=== PATIENT | female | born 1985 | race American Indian/Alaskan Native ===

== ENCOUNTER 2017-10-23 18:37 | Emergency (ER) | payer SELFPAY ==
[2017-10-23 19:47] LABS: Hematocrit 42.7 % (30.3-42.9); Mean Corpuscular HGB Conc 33 % (30-34); Mean Corpuscular Hemoglobin 30 pg (28-32); Mean Corpuscular Volume 90 fl (79-97); Platelet Count 368 K/mm3 (140-440); Red Blood Count 4.75 M/mm3 (3.65-5.03); Red Cell Distribution Width 14.1 % (13.2-15.2)
[2017-10-23 20:00] LABS: BUN/Creatinine Ratio 11; Blood Urea Nitrogen 8 mg/dL (7-17); Calcium 9.5 mg/dL (8.4-10.2); Hemolysis Index 3
[2017-10-23] MEDS ORDERED: KEPPRA PO ONE (20:51)
[2017-10-23 20:57] VITALS: BP 129/78
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
== END 2017-10-23 21:49 | disposition home or self-care (01) ==
LOC: ED 18:37
DX: E86.0 Dehydration (principal); R56.9 Unspecified convulsions; Z72.0 Tobacco use
CPT/HCPCS: 36415; 80048; 82962; 84703; 85027; 99285

== ENCOUNTER 2021-02-08 19:52 | Emergency (ER) | payer MEDICAID ==
[2021-02-08 19:57] VITALS: BP 128/79
[2021-02-08] MEDS ORDERED: ASPIRIN 81 MG TAB CHEW PO ONE (20:36)
[2021-02-08] MEDS ORDERED: ACETAMINOPHEN 325 MG TAB PO ONE (20:36)
[2021-02-08] MEDS ORDERED: FAMOTIDINE 20 MG TAB PO ONE (20:37)
--- NOTE | 2021-02-08 21:14 | XRay Report ---
CHEST 2 VIEWS INDICATION / CLINICAL INFORMATION: Chest pain. COMPARISON: None available. FINDINGS: SUPPORT DEVICES: None. HEART / MEDIASTINUM: No significant abnormality. LUNGS / PLEURA: No significant pulmonary abnormality. No significant pleural effusion. No pneumothora x. ADDITIONAL FINDINGS: No significant additional findings. IMPRESSION: 1. No acute abnormality of the chest. Signer Name: Brigido Bazan MD Signed: 02/08/2021 9:10 PM Workstation Name: [id number]
[2021-02-08 21:36] LABS: Basophils # (Auto) 0.1 K/mm3 (0.0-0.1); Basophils % (Auto) 0.4 % (0.0-1.8); Eosinophils % (Auto) 0.2 % (0.0-4.3); Hematocrit 39.8 % (30.3-42.9); Hemoglobin 12.4 gm/dl (10.1-14.3); Lymphocytes # (Auto) 2.8 K/mm3 (1.2-5.4); Lymphocytes % (Auto) 22.8 % (13.4-35.0); Mean Corpuscular HGB Conc 31 % (30-34); Mean Corpuscular Volume 91 fl (79-97); Monocytes # (Auto) 0.7 K/mm3 (0.0-0.8); Monocytes % (Auto) 5.6 % (0.0-7.3); Platelet Count 432 K/mm3 (140-440); Red Cell Distribution Width 13.5 % (13.2-15.2)
[2021-02-08 21:56] LABS: Alanine Aminotransferase 35 units/L (7-56); Albumin 4.5 g/dL (3.9-5); Blood Urea Nitrogen 14 mg/dL (7-17); Calcium 9.5 mg/dL (8.4-10.2); Hemolysis Index 7
[2021-02-08 22:01] LABS: BUN/Creatinine Ratio 20
--- NOTE | 2021-02-08 23:00 | Emergency Department Report ---
ED Chest Pain HPI - General Chief Complaint: Chest Pain Stated Complaint: Chest Pain Source: patient Mode of arrival: Ambulatory Limitations: No Limitations - History of Present Illness Initial Comments: Patient is a 35-year-old -[place] female with a history of heavy tobacco abuse who presents to the ED with complaint of persistent diffuse chest wall pain radiating the right side with persistent dry cough and pleuritic chest pain for the last 6 months, worse in the last 2 days. Patient states that the symptoms have been persistent and worse with movement or cough. Patient denies dizziness, syncope, nausea, vomiting, dysuria, urinary frequency and urgency, shortness of breath, sore throat, nasal and sinus congestion, neck pain, diaphoresis, abdominal pain or back pain, traumatic injury or heavy lifting. MD Complaint: chest pain (Right-sided chest pain), other (Persistent cough) -: Gradual, month(s) (6) Onset: during exertion, other (With cough) Pain Location: right chest Pain Radiation: none Severity: moderate Severity scale (0 -10): 6 Quality: aching, sharp Consistency: intermittent Improves With: rest Worsens With: inspiration, palpation, movement, other (Cough) re: denies: nausea, vomting, diaphoresis, dyspnea, sense of impending doom Other Symptoms: cough. denies: fever, syncope, rash, acid taste in mouth, leg swelling, palpitations, burping Treatments Prior to Arrival: none - Related Data On Oral Contraceptives: No Previous Rx's Medication Instructions Recorded Last Taken Type Ibuprofen [Motrin] 400 mg PO Q8H PRN #20 tablet 02/08/21 Unknown Rx Ondansetron [Zofran ODT TAB] 8 mg PO Q8HR #20 tab.rapdis 02/09/21 Unknown Rx RX: Nitrofurantoin [place]/M-Cryst 100 mg PO Q12HR #20 capsule 02/09/21 Unknown Rx [Macrobid CAP] Allergies Allergy/AdvReac Type Severity Reaction Status Date / Time Sulfa (Sulfonamide Allergy Unknown Verified 02/09/21 04:12 Antibiotics) Heart Score - HEART Score History: Slightly suspicious EKG: Normal Age: < 45 Risk factors: 1-2 risk factors Troponin: < normal limit HEART Score: 1 - EKG Read Time Time EKG Completed: 02:09 EKG Read Time: 02:10 - Critical Actions Critical Actions: 0-3 pts:0.9-1.7%risk of adverse cardiac event.Candidate for princess araiza ED Review of Systems ROS: Stated complaint: Chest Pain Other details as noted in HPI Constitutional: denies: chills, fever Eyes: denies: eye pain, eye discharge, vision change ENT: denies: ear pain, throat pain Respiratory: cough. denies: shortness of breath, wheezing Cardiovascular: chest pain (Diffuse pruritic chest pain). denies: palpitations Endocrine: no symptoms reported Gastrointestinal: denies: abdominal pain, nausea, diarrhea Genitourinary: denies: urgency, dysuria, discharge Musculoskeletal: denies: back pain, joint swelling, arthralgia Skin: denies: rash, lesions Neurological: denies: headache, weakness, paresthesias Psychiatric: anxiety. denies: depression Hematological/Lymphatic: denies: easy bleeding, easy bruising ED Past Medical Hx - Past Medical History Previous Medical History?: No - Surgical History Past Surgical History?: No - Social History Smoking Status: Current Some Day Smoker Substance Use Type: None - Medications Home Medications: Home Medications Medication Instructions Recorded Confirmed Last Taken Type Ibuprofen [Motrin] 400 mg PO Q8H PRN #20 tablet 02/08/21 Unknown Rx Ondansetron [Zofran ODT TAB] 8 mg PO Q8HR #20 tab.rapdis 02/09/21 Unknown Rx RX: Nitrofurantoin [place]/M-Cryst 100 mg PO Q12HR #20 capsule 02/09/21 Unknown Rx [Macrobid CAP] ED Physical Exam - General Limitations: No Limitations General appearance: alert, in no apparent distress - Head Head exam: Present: atraumatic, normocephalic, normal inspection - Eye Eye exam: Present: normal appearance, PERRL, EOMI Pupils: Present: normal accommodation - ENT ENT exam: Present: normal exam, normal orophraynx, mucous membranes moist, TM's normal bilaterally, normal external ear exam - Neck Neck exam: Present: normal inspection, full ROM - Respiratory Respiratory exam: Present: normal lung sounds bilaterally, chest wall tenderness (Palpable reproducible diffuse chest wall tenderness worse on the right chest wall). Absent: respiratory distress, wheezes, rales, rhonchi, accessory muscle use, decreased breath sounds, prolonged expiratory - Cardiovascular Cardiovascular Exam: Present: regular rate, normal rhythm, normal heart sounds. Absent: systolic murmur, diastolic murmur, rubs, gallop - GI/Abdominal GI/Abdominal exam: Present: soft, normal bowel sounds. Absent: tenderness, guar ding, rebound, hyperactive bowel sounds, hypoactive bowel sounds, organomegaly - Extremities Exam Extremities exam: Present: normal inspection, full ROM, normal capillary refill - Back Exam Back exam: Present: normal inspection, full ROM. Absent: tenderness, CVA tenderness (R), CVA tenderness (L), muscle spasm, paraspinal tenderness, vertebral tenderness - Neurological Exam Neurological exam: Present: alert, oriented X3, CN II-XII intact, normal gait, reflexes normal - Psychiatric Psychiatric exam: Present: normal affect, normal mood, anxious - Skin Skin exam: Present: warm, dry, intact, normal color. Absent: rash ED Course Vital Signs 02/08/21 19:54 Temperature 98.0 F Pulse Rate 87 Respiratory 17 Rate Blood Pressure 128/79 [Right] O2 Sat by Pulse 100 Oximetry ANGEL score - Angel Score Age > 65: (0) No Aspirin use within the Past 7 Days: (0) No 3 or more CAD Risk Factors: (0) No 2 or more Angina events in past 24 hrs: (0) No Known CAD with more than 50% Stenosis: (0) No Elevated Cardiac Markers: (0) No ST Deviation Greater than 0.5mm: (0) No ANGEL Score: 0 ED Medical Decision Making - Lab Data Result diagrams: 02/08/21 21:18 02/08/21 21:18 - EKG Data EKG shows normal: sinus rhythm Rate: normal - EKG Data Interpretation: normal EKG 02/09/21 06:17 EKG shows normal sinus rhythm with a ventricular rate of [address] or T wave normalities. - Radiology Data Radiology results: report reviewed, image reviewed [facility] [address] [place] [address] XRay Report Signed Patient: JOCELYNE PETTY MR#: [id number] : 1985 Acct:[id number] Age/Sex: 35 / F ADM Date: 02/08/21 Loc: ED Attending Dr: Ordering Physician: LUIS PAULSON Date of Service: 02/08/21 Procedure(s): XR chest routine 2V Accession Number(s): [id number] cc: LUIS PAULSON Fluoro Time In Minutes: CHEST 2 VIEWS INDICATION / CLINICAL INFORMATION: Chest pain. COMPARISON: None available. FINDINGS: SUPPORT DEVICES: None. HEART / MEDIASTINUM: No significant abnormality. LUNGS / PLEURA: No significant pulmonary abnormality. No significant pleural effusion. No pneumothorax. ADDITIONAL FINDINGS: No significant additional findings. IMPRESSION: 1. No acute abnormality of the chest. Signer Name: Brigido Bazan MD Signed: 02/08/2021 9:10 PM Workstation Name: [id number] Transcribed By: JEANETTE Dictated By: Brigido Bazan MD Electronically Authenticated By: Brigido Bazan MD Signed Date/Time: 02/08/212109 DD/ 09 TD/TT: Print - Medical Decision Making This is a 35-year-old -[place] female with a history of heavy tobacco abuse who presents to the ED with complaint of persistent diffuse chest wall pain radiating the right side with persistent dry cough and pleuritic chest pain for the last 6 months, worse in the last 2 days. Patient states that the symptoms have been persistent and worse with movement or cough. In the ED, patient is alert and oriented x3 and is not in any distress. EKG shows normal sinus rhythm with a ventricular rate of [address] or T wave normalities. Chest x-ray showed no acute cardiopulmonary abnormalities or pneumonitis. All lab test results were reviewed and are all nonactionable. Patient was treated for pain in the ED with pain on reevaluation, patient's pain is well controlled medication. Patient declined urinalysis during this visit. Patient's heart score is 1 and patient is PERC negative per Wells criteria. Patient was discha rged home on pain medications and advised to follow-up with her primary care physician in 7 to 10 days for reevaluation. Patient is advised return to the ED immediately if symptoms get worse. - Differential Diagnosis ACS; pneumonia; bronchitis; costochondritis; anxiety; Critical care attestation.: If time is entered above; I have spent that time in minutes in the direct care of this critically ill patient, excluding procedure time. ED Disposition Clinical Impression: Acute nonspecific chest pain with low risk of coronary artery disease, Acute costochondritis Disposition: HOME / SELF CARE / HOMELESS Is pt being admited?: No Does the pt Need Aspirin: No Condition: Stable Instructions: Costochondritis, Luqz-ok-Wogs, Nonspecific Chest Pain, Adult, Kpmj-as-Fops, Chest Pain (ED) Additional Instructions: Your lab test results were unremarkable, and chest x-ray showed no acute cardiopulmonary abnormalities or pneumonitis. Your symptoms are likely due to muscle strain of the chest wall muscles that cause inflammation of your chest wall that results in pain. Therefore take pain medication as needed with food, drink plenty of fluids and follow-up with your primary care physician in 5 to 7 days for reevaluation. Return to the ED immediately if symptoms get worse. Prescriptions: Ibuprofen [Motrin] 400 mg PO Q8H PRN #20 tablet PRN Reason: Pain , Severe (7-10) Referrals: [facility] [Provider Group] - 3-5 Days Time of Disposition: 22:59 Print Language: DANISH
--- NOTE | 2021-02-09 08:58 | Electrocardiograph Report ---
[facility] Test Date: 2021-02-08 Test Time: 20:04:45 Pat Name: JOCELYNE PETTY Department: Room: Gender: F Cell Reliner: AMPARO : 1985 Requested By: VINAY SIERRA Order Number: [id number] Reading MD: Prince Momin Measurements Intervals [place] Rate: 77 P: 63 HI: 133 QRS: 70 QRSD: 84 T: 54 QT: 403 QTc: 457 Interpretive Statements Sinus rhythm No previous ECG available for comparison Electronically Signed On 02-09-2021 8:57:47 EST by Prince Momin
== END 2021-02-09 01:02 | disposition home or self-care (01) ==
LOC: ED 19:52
DX: M94.0 Chondrocostal junction syndrome [Tietze] (principal); R07.89 Other chest pain; F17.200 Nicotine dependence, unspecified, uncomplicated
CPT/HCPCS: 36415; 71046; 80053; 83690; 84484; 85025; 93005

== ENCOUNTER 2021-02-09 04:03 | Emergency (ER) | payer MEDICAID ==
[2021-02-09 04:12] VITALS: BP 109/72
--- NOTE | 2021-02-09 04:47 | Emergency Department Report ---
HPI - General Chief Complaint: Abdominal Pain - HPI HPI: MSE 1 Patient is a 35-year-old female present with a chief complaint of nausea and lower abdominal discomfort. The patient was seen in this ED several hours ago for right-sided chest pain. The patient returns and states she never received any medication for nausea. Patient states she also has occasional pain in the left lower quadrant for the past 2 to 3 weeks. Patient denies dysuria or hematuria. ED Past Medical Hx - Past Medical History Previous Medical History?: No - Surgical History Past Surgical History?: No - Family History Family history: no significant - Social History Smoking Status: Current Some Day Smoker Substance Use Type: None - Medications Home Medications: Home Medications Medication Instructions Recorded Confirmed Last Taken Type Ibuprofen [Motrin] 400 mg PO Q8H PRN #20 tablet 02/08/21 Unknown Rx Nitrofurantoin [place]/M-Cryst 100 mg PO Q12HR #20 capsule 02/09/21 Unknown Rx [Macrobid CAP] Ondansetron [Zofran ODT TAB] 8 mg PO Q8HR #20 tab.rapdis 02/09/21 Unknown Rx ED Review of Systems ROS: Stated complaint: ABD PAIN Other details as noted in HPI Constitutional: denies: fever Eyes: denies: eye pain ENT: denies: throat pain Respiratory: no symptoms reported Cardiovascular: as per HPI Endocrine: no symptoms reported Gastrointestinal: abdominal pain, nausea, vomiting Genitourinary: denies: dysuria, hematuria Musculoskeletal: back pain Neurological: denies: headache Physical Exam - Physical Exam Vital Signs: Vital Signs 02/09/21 04:05 Temperature 98.0 F Pulse Rate 81 Respiratory 16 Rate Blood Pressure 109/72 [Right] O2 Sat by Pulse 100 Oximetry Physical Exam: GENERAL: The patient is well-developed well-nourished female sitting in chair not appearing to be in acute distress. [] HEENT: Normocephalic. Atraumatic. Extraocular motions are intact. Patient has moist mucous membranes. NECK: Supple. Trachea midline CHEST/LUNGS: Clear to auscultation. There is no respiratory distress noted. HEART/CARDIOVASCULAR: Regular. There is no tachycardia. There is no gallop rub or murmur. ABDOMEN: Abdomen is soft, nontender. Patient has normal bowel sounds. There is no abdominal distention. SKIN: There is no rash. There is no edema. There is no diaphoresis. NEURO: The patient is awake, alert, and oriented. The patient is cooperative. The patient has no focal neurologic deficits. The patient has normal speech. GCS MUSCULOSKELETAL: There is right CVA tenderness. There is no evidence of acute injury. ED Course Vital Signs 02/09/21 04:05 Temperature 98.0 F Pulse Rate 81 Respiratory 16 Rate Blood Pressure 109/72 [Right] O2 Sat by Pulse 100 Oximetry ED Medical Decision Making - Differential Diagnosis UTI, gastritis Critical care attestation.: If time is entered above; I have spent that time in minutes in the direct care of this critically ill patient, excluding procedure time. ED Disposition Clinical Impression: UTI (urinary tract infection), Nausea Disposition: HOME / SELF CARE / HOMELESS Is pt being admited?: No Does the pt Need Aspirin: No Condition: Stable Instructions: Abdominal Pain (ED), Nausea and Vomiting, Adult, Urinary Tract Infection, Adult, [id number] Additional Instructions: Return to the emergency department should you develop worsening symptoms, inability to tolerate food or liquids, high fever or any other concerns Prescriptions: Nitrofurantoin [place]/M-Cryst [Macrobid CAP] 100 mg PO Q12HR #20 capsule Ondansetron [Zofran ODT TAB] 8 mg PO Q8HR #20 tab.rapdis Referrals: [facility] [Provider Group] - 3-5 Days Time of Disposition: 05:43
[2021-02-09 05:33] LABS: Bacteria,Urine 2+ /HPF (Negative); Bilirubin,Urine NEG (Negative); Blood,Urine LG (Negative); Color,Urine Yellow (Yellow); Mucus,Urine 3+ /HPF; Urobilinogen,Urine < 2.0 mg/dL (<2.0)
== END 2021-02-09 05:56 | disposition home or self-care (01) ==
LOC: ED 04:03
DX: N39.0 Urinary tract infection, site not specified (principal); R11.0 Nausea; F17.200 Nicotine dependence, unspecified, uncomplicated
CPT/HCPCS: 81001; 99283